=== PATIENT | male | born 1995 | race Two or more races ===

== ENCOUNTER 2024-08-30 04:34 | Emergency (ER) | payer MEDICAID, SELFPAY ==
[2024-08-30 04:35] VITALS: BMI 35.4
[2024-08-30 05:04] VITALS: BP 142/90; PULSE 79; RESP 17; TEMP 37.1; O2SAT 97
--- NOTE | 2024-08-30 05:13 | EDNOTE_ITS ---
ED Skin Abcess FB-RME/HPI General Chief complaint: Skin/Abscess/Foreign Body Stated complaint: RASH ON FACE Time Seen by Provider: 08/30/24 05:03 Source: patient Arrival date/time: 08/30/24 04:34 28-year-old male presents emergency department complaining of red and pruritic rash to left side of cheek that started 5 days ago. Patient reports recently has started going to the gym and reports has been having poor hygiene wearing sweaty sweaters and thought that might have been the cause of his rash. Patient bought [id number] antifungal cream that reports has helped somewhat but not completely gotten rid of his rash. Patient denies any fever, chills, new soaps, new foods, or chemical exposures. Mode of arrival: ambulatory Limitations: no limitations Related Data Previous Rx's ?Medication ?Instructions ?Recorded azithromycin 250 mg tablet See Rx Instructions PO .COM PLEX #6 05/23/21 tabs ibuprofen 600 mg tablet 600 mg PO QID PRN fever or p ain 05/23/21 #30 tabs albuterol sulfate 90 mcg/actuation 2 puff inhalation Q 6H PRN 04/18/22 aerosol inhaler (Proventil HFA) shortness of breath or wheezing #8.5 grams erythromycin 5 mg/gram (0.5 %) eye 0.5 inch ophthalmic (eye) QID #3.5 09/18/23 ointment grams cephalexin 500 mg capsule 500 mg PO BID 5 days #10 cap s 08/30/24 clotrimazole 1 % topical cream 1 applic topical BID 4 weeks #15 08/30/24 grams diphenhydramine HCl 25 mg capsule 25 mg PO TID PRN itc erik 7 days 08/30/24 (Benadryl) #10 caps Allergies Allergy/AdvReac Type Severity Reaction Status Date / Time Penicillins Allergy Mild Rash Verified 04/18/22 19:10 Review of Systems Review of Systems Systems Reviewed: All systems reviewed, normal except as documented Constitutional Constitutional: Reports system reviewed and no additional complaints, except as documented, Denies body ache(s), Denies chills and Denies fever(s) Eyes Eyes: Reports system reviewed and no additional complaints, except as documented and Denies change in vision ENT Ears, Nose, Mouth, and Throat: Reports system reviewed and no additional complaints, except as documented, Denies disequilibrium, Denies dizziness, Denies sore throat and Denies vertigo Cardiovascular Cardiovascular: Reports system reviewed and no additional complaints, except as documented, Denies chest pain and Denies dyspnea Respiratory Respiratory: Reports system reviewed and no additional complaints, except as documented, Denies chest congestion, Denies cough and Denies dyspnea Gastrointestinal Gastrointestinal: Reports system reviewed and no additional complaints, except as documented, Denies abdominal pain, Denies nausea and Denies vomiting Musculoskeletal Musculoskeletal: Reports system reviewed and no additional complaints, except as documented, Denies abnormal gait and Denies arthralgias Integumentary/Breasts Skin/Breast: Reports system reviewed and no additional complaints, except as documented, Reports erythema and Reports rash Neurologic Neurologic: Reports system reviewed and no additional complaints, except as documented, Denies abnormal gait, Denies disequilibrium, Denies dizziness and Denies vertigo Past Medical History Past Medical History NEUROLOGIC: Positive Neurological Disorders; Negative Seizures CARDIAC: Negative Cardiac Disorders or Congestive Heart Failure RESPIRATORY: Positive Asthma; Negative Chronic Obstructive Pulmonary Disease (COPD) GASTROINTESTINAL: Negative Gastrointestinal Disorders or Hepatitis GENITOURINARY: Negative Genitourinary Disorders or Renal Disease MUSCULOSKELETAL: Positive Fractures ENDOCRINE: Negative Endocrine Disorders, Diabetes Mellitus Type 1 or Diabetes Mellitus Type 2 HEMATOLOGIC: Negative Blood Disorders OTHER HISTORY: Positive Chicken Pox; Negative Autoimmune Disease, Blood Transfusions, Anesthesia Reactions, Organ Transplant, MRSA or Cancer Family History FAMILY HISTORY: Positive Family Surgery; Negative Family Psychiatric Problems, Family Respiratory Disorders, Family Cardiac Disorders, Family Gastrointestinal Problems or Family Cancer Surgical History SURGICAL: Positive Open Reduction Internal Fixation; Negative Cardiac Surgery, Endocrine Surgery, Ear Surgery, Eye Surgery, Tonsillectomy, Throat Surgery, Abdominal Surgery, Nephrectomy, Transurethral Resection, Neurologic Surgery, Vasectomy or Organ Transplant Social History SMOKING STATUS: Former smoker ED Exam General Limitations: Present no limitations General appearance: Present alert and in no apparent distress Head Head exam: Present atraumatic Expanded Head Exam Head image: 2 1. Reddened macular rash no open lesions or sores with mild induration. Eye Eye exam: Present normal appearance, PERRL and EOMI ENT ENT exam: Present normal exam, normal oropharynx and mucous membranes moist Neck Neck exam: Present normal inspection, full ROM and trachea midline Chest Chest inspection: Present normal inspection and symmetric chest wall rise Respiratory Respiratory exam: Present normal lung sounds bilaterally Cardiovascular Cardiovascular exam: Present regular rate, normal rhythm and normal heart sounds Abdominal Exam Abdominal exam: Present soft and normal bowel sounds Extremities Exam Extremities exam: Present normal inspection and full ROM Back Exam Back exam: Present normal inspection and full ROM Neurological Exam Neurological exam: Present alert, oriented X3 and CN II-XII intact Psychiatric Psychiatric exam: Present normal affect and normal mood Skin Skin exam: Present warm, dry, intact and normal color Course Quality Measures none Orders Category Date Time Status DiphenhydrAMINE [Benadryl] Med 08/30/24 05:19 Discontinued 25 mg PO X1 ONE cefTRIAXone [Rocephin] 1,000 mg Med 08/30/24 05:13 Discontinued Lidocaine 1% 20 ml [Xylocaine 1% 20 ML] 2.1 ml IM X1 Vital Signs Vital signs: Vital Signs Temperature 98.8 F 08/30/24 05:04 Pulse Rate 79 08/30/24 05:04 Respiratory Rate 17 08/30/24 05:04 Blood Pressure 142/90 H 08/30/24 05:04 Pulse Oximetry (%) 97 08/30/24 05:04 Oxygen Delivery Method Room Air 08/30/24 05:04 97% room air within normal limits Skin / Abscess / Foreign Body MDM Narrative MDM Narrative:: 28-year-old male presents emergency department complaining of red and pruritic rash to left side of cheek that started 5 days ago. Patient reports recently has started going to the gym and reports has been having poor hygiene wearing sweaty sweaters and thought that might have been the cause of his rash. Patient bought [id number] antifungal cream that reports has helped somewhat but not completely gotten rid of his rash. Patient denies any fever, chills, new soaps, new foods, or chemical exposures. Macular reddened rash left-sided cheek with no obvious sores or lesions or drainage observed but has mild induration patient reports is pruritic and does report some pain. Edema +1 compared to right side of cheek. Will treat with antibiotics and also antifungal cream. Will treat with antibiotics to rule out bacterial cause and will prescribe clobetasol cream due to patient reporting medication was helping but reports was not applying it consistently and she started applying it 2 days ago. Instructed patient to have close follow-up with primary care provider and request referral to charter driver if symptoms persist. Instructed to return immediately to emergency department for any worsening symptoms or as needed. Patient data External records reviewed:: [facility] previous records Clinical information provided by:: patient Social determinants that could affect healthcare access:: none Patient has the following chronic illnesses:: None How is presenting disease/condition affected by chronic disease/condition?: no chronic disease Evaluation data The following diagnostics were reviewed and interpreted by me:: other (specify) (None) Lab and/or radiology exams considered but not ordered:: None Interpretation Summary: None Medications / Prescriptions Medications or Prescriptions considered but not ordered:: Ordered Medication administrations:: Medication Administration History Discontinued Medications Ceftriaxone Sodium 1,000 mg/ (Lidocaine HCl 2.1 ml) 0 mg IM X1 ONE Stop: 08/30/24 05:14 Diphenhydramine HCl (Diphenhydramine 25 Mg Capsule) 25 mg PO X1 ONE Stop: 08/30/24 05:20 Given Consultations Consultation(s) initiated? (list below): No Diagnosis Skin/Abscess Differential Diagnosis: abscess of skin or subcutaneous tissue, viral exanthem, dermatophytosis, urticaria, allergic reaction to drug, cellulitis, eczema, insect bites, impetigo, contact dermatitis and other (Tinea ) Most likely diagnosis given after review of the tests above:: Cellulitis Admission Indicated Admission indicated?: not indicated Admission Request Was there a request for admission?: No Disposition Plan Disposition Plan: Discharge Discharge Attestation Discharge Attestation: The patient and all family members were given an opportunity to ask questions and understood the discharge instructions. Discharge instructions specifically effects, indications for sooner follow up or return to the emergency department, and the expected course of current diagnosis. Patient condition: Stable Discharge Plan Plan Patient Disposition: HOME (Self Care) Disposition Comment: Stable Prescriptions/Referrals Prescriptions/Med Rec: New cephalexin 500 mg capsule 500 mg PO BID 5 Days Qty: 10 0RF clotrimazole 1 % cream 1 applic topical BID 28 Days Qty: 15 0RF diphenhydramine HCl [Benadryl] 25 mg capsule 25 mg PO TID PRN (Reason: itching) 7 Days Qty: 10 0RF No Action ibuprofen 600 mg tablet 600 mg PO QID PRN (Reason: fever or pain) Qty: 30 0RF azithromycin 250 mg tablet See Rx Instructions .ROUTE .COMPLEX Qty: 6 0RF Rx Instructions: For 250 mg dose pack: take 500 mg today (day 1), then 250 mg for 4 days (days 2-5) albuterol sulfate [Proventil HFA] 90 mcg/actuation HFA aerosol inhaler 2 puff inhalation Q6H PRN (Reason: shortness of breath or wheezing) Qty: 8.5 0RF erythromycin 5 mg/gram (0.5 %) ointment 0.5 inch ophthalmic (eye) QID Qty: 3.5 0RF Referrals: Temporary Provider,ED [Primary Care Provider] - In 1 week Problem List Clinical Impression: Cellulitis Patient/Caregiver Discharge Instructions Discharge Activity: activity as tolerated Education Materials: Discharge Instructions for Cellulitis, ED Cellulitis Additional Instructions: Keep affected area clean and dry. Apply medication twice a day as prescribed. Take antibiotics as prescribed and complete. Close follow-up with primary care provider and request referral to charter driver if symptoms persist. Return immediately to emergency department for any worsening symptoms or as needed. Print Language: Serbian Stand Alone Forms: Claudia Award Info., Patient Portal Info Letter PA/DIGITAL ARCHIVIST Supervising Physician PA/ELKE Supervising Physician: Dr. Otero
[2024-08-30] MEDS: DiphenhydrAMINE 25 MG CAPSULE PO (05:34)
[2024-08-30] MEDS: cefTRIAXone 1,000 MG, LIDOCAINE 1% 20 ML 2.1 ML IM (05:34)
== END 2024-08-30 05:43 | disposition home or self-care (01) ==
LOC: SERX 05:39
PROVIDERS: Emergency Provider Emergency Medicine; PCP Family Medicine
DX: L03.211 Cellulitis of face (principal); Z87.891 Personal history of nicotine dependence
CPT/HCPCS: 96372; 99283; J0696; J3490; A9270